=== PATIENT | female | born 1985 | race African-American/Black ===

== ENCOUNTER → 2017-08-25 | Outpatient (CLI) | payer OTHER ==
--- NOTE | 2017-08-25 15:10 | RAD ---
Breast ultrasound Indication: Right breast palpable lump. Technique: Grayscale and color Doppler ultrasound images of the right breast in the region of palpable abnormality obtained. Comparison: None Findings: There is an oval-shaped well-circumscribed pericardial hypoechoic and centrally hypoechoic lesion at 9:00 position in the right breast approximately 12 cm from the nipple measuring 0.7 x 0.3 x 0.6 cm with internal vascularity. The orientation of this lesion is wider than taller and there is no posterior acoustic shadowing. No other cystic or solid lesions in the interrogated right breast Impression: Right breast mass in the region of palpable abnormality as described above. Sonographic features of this lesion appears benign and most likely represents either a lymph node or fibroadenoma. Follow-up ultrasound in 6 months recommended. BI-RADS 3: Probably benign. Follow-up right breast ultrasound in 6 months recommended.
== END | disposition home or self-care (01) ==
LOC: US 14:27
PROVIDERS: ATTEND Obstetrics & Gynecology
DX: N63.10 Unspecified lump in the right breast, unspecified quadrant (principal)
CPT/HCPCS: 76641